=== PATIENT | female | born 1955 | race Caucasian/White ===

== ENCOUNTER 2019-11-18 13:38 | Emergency (ER) | payer BC, SELFPAY ==
--- NOTE | 2019-11-18 13:42 | ED.WOUNDLAC ---
HPI - Wound/Laceration General Chief Complaint: Wound/Laceration Stated Complaint: cut to pinky finger on left hand Time Seen by Provider: 11/18/19 14:00 Source: patient and RN notes reviewed Mode of arrival: ambulatory Limitations: no limitations History of Present Illness HPI narrative: 64-year-old female presents with concern for laceration to the tip of the fifth digit on the left hand. Reports she cut herself prior to arrival on a chemist food. Patient refused tetanus Extremity Location: Left: hand Related Data Home Medications Medication Instructions Recorded Confirmed hydrochlorothiazide 25 mg PO DAILY 11/18/19 11/18/19 lisinopril 10 mg PO DAILY 11/18/19 11/18/19 Allergies Allergy/AdvReac Type Severity Reaction Status Date / Time No Known Allergies Allergy Unverified 08/19/16 14:10 Review of Systems Review of Systems: Narrative: CONSTITUTIONAL: Denies malaise, chills, sweats, or fever. SKIN: Reports laceration to the palmar aspect of the fifth digit of the left hand MUSCULOSKELETAL: Denies musculoskeletal pain, decreased range of motion NEUROLOGIC: Denies numbness, weakness. All systems reviewed & are unremarkable except as noted in HPI and below PMFSH Comments At time of signature, agree with nursing past medical, surgical, social and family history. There is no relevant family history pertinent to the presenting complaint Exam Narrative: Exam Narrative: GENERAL: Well-appearing, well-nourished, and in no acute distress. HEAD: Normocephalic EYES: PERRLA, conjunctivae clear NECK: Supple. CHEST: Speaks in full sentences. No respiratory distress. HEART: Regular rate and rhythm. Normal and equal peripheral pulses. EXTREMITIES: Fifth digit of left hand has normal strength and sensation. 5/5 strength with digit flexion, extension. Range of motion normal. No clubbing, cyanosis, or edema noted. No tenderness. Normal digital cascade with flexion of fingers, median, ulnar and radial nerve intact. Normal sensation of each side of finger. Can perform 'okay' sign, 'cross over finger test of index and middle fingers' and 'thumbs up' sign. No scissoring. Normal thumb opposition. Good capillary refill and radial pulse. Distal capillary refill less than 3 seconds. SKIN: Warn, dry, intact, pink. No rash. 1.5 cm linear laceration, superficial noted to the palmar aspect of the distal end of the fifth digit of the left hand NEURO: Alert and oriented x3. PSYCH: Normal mood and affect Course Course Emergency Course: Patient is aware of diagnosis, understands and agrees to treatment plan. Anticipatory guidance given. Patient agrees to follow-up as directed and is aware of reasons to seek care at the emergency department. Portions of this record may have been created with voice recognition software Vital Signs Vital signs: Vital Signs Temperature 98.8 F 11/18/19 13:50 Pulse Rate 105 H 11/18/19 13:50 Respiratory Rate 20 11/18/19 13:50 Blood Pressure 148/81 H 11/18/19 13:50 Pulse Oximetry 98 11/18/19 13:50 Temperature 98.8 F 11/18/19 13:50 Pulse Rate 105 H 11/18/19 13:50 Respiratory Rate 11/18/19 13:50 Blood Pressure 148/81 H 11/18/19 13:50 Pulse Oximetry 98 11/18/19 13:50 Reviewed. Patient has history of hypertension Procedures Laceration Laceration 1: Date: 11/18/19 Time: 14:19 Site: hand Side (If applicable): left Size (cm): 1.5 Description: linear Depth: simple, single layer Local Anesthetic: none ====== Skin Level ====== Skin layer closed with: dermabond ====== Subcutaneous Layer ====== ====== Muscle Layer ====== ====== Tendon Layer ====== MDM - Wound/Laceration MDM Narrative Medical decision making narrative: Exam findings how no acute concerns or changes; patient is non-toxic appearing and is in no distress. Patient is appropriate for outpatient treatment and follow-up. Differential Diag
[2019-11-18 13:50] VITALS: BP 148/81; PULSE 105; RESP 20; TEMP 37.1; O2SAT 98
== END 2019-11-18 14:30 | disposition home or self-care (01) ==
PROVIDERS: Emergency Provider Nurse Practitioner; PCP Internal Medicine Geriatric Medicine
DX: S61.217A Laceration without foreign body of left little finger without damage to nail, initial encounter (principal); W29.0XXA Contact with powered kitchen appliance, initial encounter; I10 Essential (primary) hypertension
CPT/HCPCS: 12001; 99202; G0463